=== PATIENT | male | born 1955 | race Caucasian/White ===

== ENCOUNTER 2018-12-15 09:23 | Emergency (ER) | payer BC ==
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
== END 2018-12-15 11:46 | disposition home or self-care (01) ==
LOC: ER 09:23
DX: S70.02XA Contusion of left hip, initial encounter (principal); V13.4XXA Pedal cycle driver injured in collision with car, pick-up truck or van in traffic accident, initial encounter; Y92.414 Local residential or business street as the place of occurrence of the external cause
CPT/HCPCS: 72192; 99283; 99284